=== PATIENT | female | born 1975 | race Caucasian/White ===

== ENCOUNTER 2021-11-14 11:18 | Emergency (ER) | payer OTHER ==
[~2021-11-14] VITALS: Ht 167.6 cm; Wt 71.9 kg
[2021-11-14] MEDS ORDERED: LEXAPRO10 MG PO (11:37)
[2021-11-14] MEDS ORDERED: HYDROXYZINE HCL25 MG (11:37)
--- NOTE | 2021-11-15 16:31 | EKG ---
[facility] [address] [facility] [place] [address] Signed Normal sinus rhythm with sinus arrhythmia Nonspecific ST abnormality Abnormal ECG No previous ECGs available Confirmed by ALISSA VEGA DO ([id number]) on 11/15/2021 4:31:09 PM Electronically Signed By: ALISSA VEGA DO 11/15/21 163 PATIENT NAME: ANJALI DARLING Electrocardiogram DATE OF : 77 PHYSICIAN: ALISSA VEGA DO REPORT #: [id number] REPORT IS CONFIDENTIAL AND NOT TO BE RELEASED WITHOUT AUTHORIZATION
== END 2021-11-14 14:56 | disposition home or self-care (01) ==
LOC: ED 11:18
DX: R00.2 Palpitations (principal); Z79.899 Other long term (current) drug therapy
CPT/HCPCS: 80053; 81001; 83036; 83735; 84443; 84703; 85025; 93005; 93010; 99285-25